=== PATIENT | male | born 1980 | race Caucasian/White ===

== ENCOUNTER → 2018-02-26 | Outpatient (CLI) | payer OTHER | LOC: FIMAGING 07:54 | PROVIDERS: ATTEND Radiology Diagnostic Radiology | DX: I87.2 Venous insufficiency (chronic) (peripheral) (principal); R22.42 Localized swelling, mass and lump, left lower limb; L98.499 Non-pressure chronic ulcer of skin of other sites with unspecified severity; Z86.718 Personal history of other venous thrombosis and embolism ==

== ENCOUNTER 2018-03-31 11:37 | Day surgery (SDC) | payer OTHER ==
[2018-03-31] MEDS ORDERED: ONDANSETRON 4 MG/2 ML VIAL IVP ONE (11:52)
[2018-03-31] MEDS ORDERED: NS 1,000 ML IV ONE (11:52)
[2018-03-31] MEDS ORDERED: FLUMAZENIL 0.5 MG/5 ML MDV IVP PRN (11:52)
[2018-03-31] MEDS ORDERED: fentaNYL 100 MCG/2 ML INJ IVP PRN (11:52)
[2018-03-31] MEDS ORDERED: MIDAZOLAM 2 MG/2 ML VIAL IVP PRN (11:52)
[2018-03-31] MEDS ORDERED: NALOXONE HCL 0.4 MG/ML INJ IVP PRN (11:52)
[2018-03-31] MEDS ORDERED: NALOXONE HCL 0.4 MG/ML INJ ONE (12:54)
[2018-03-31] MEDS ORDERED: fentaNYL 100 MCG/2 ML INJ ONE (12:54)
[2018-03-31] MEDS ORDERED: MIDAZOLAM 2 MG/2 ML VIAL ONE (12:54)
[2018-03-31] MEDS ORDERED: FLUMAZENIL 0.5 MG/5 ML MDV IVP ONE (12:55)
--- NOTE | 2018-03-31 13:42 | PDPROPOC ---
Sedation Plan of Care Sedation Plan of Care: vital signs stable, mental status noted, patient educated of risks, benefits, alternatives, patient can tolerate sedation ASA Classification: ASA 2 Planned drugs: fentanyl, midazolam Mallampati Score: Class 2 Mallampati Reference Image: Patient passed 3-3-2 rule?: Yes
--- NOTE | 2018-03-31 13:42 | PDGENHP ---
History & Physical Chief Complaint: LLE ULCERS History of Present Illness: INCOMPETENT LSV SYSTEM CAUSING ULCERS. Pertinent Past, Social, Family History: SEEING WOUND CARE FOR DRESSING CHANGES. NON SMOKER Relevant Physical Exam: ULCER DRESSED Cardiorespiratory Assessment: RRR, CTA
[2018-03-31] MEDS ORDERED: SODIUM TETRADECYL SULFATE 3% 2 ML VIAL IV ONE (14:25)
[2018-03-31] MEDS ORDERED: LIDO/EPI 1% **for epidural** 30 ML SDV ONE (14:25)
[2018-03-31 15:18] VITALS: BP 111/81
[2018-03-31] MEDS ORDERED: ONDANSETRON 4 MG/2 ML VIAL IVP PRN (16:31)
[2018-03-31] MEDS ORDERED: ACETAMINOPHEN 325 MG TAB PO PRN (16:31)
--- NOTE | 2018-03-31 16:32 | PDRADPN ---
Radiology Procedure Note Date of Procedure: 03/31/18 Radiologist: Christine Benito Anesthesia: IV Sedation Pre-op Diagnosis: LT LEG ULCERS Post-op Diagnosis: SAME Indication: VENOUS INSUFFICIENCY Procedure: LSV ABLATION AND SCLEROTHERAPY Inf/Abcess present in the surg proc area at time of surgery?: No
== END 2018-03-31 16:41 | disposition home or self-care (01) ==
LOC: FIMAGING 11:37
PROVIDERS: ATTEND Radiology Diagnostic Radiology
DX: I83.229 Varicose veins of left lower extremity with both ulcer of unspecified site and inflammation (principal); R22.42 Localized swelling, mass and lump, left lower limb; L97.929 Non-pressure chronic ulcer of unspecified part of left lower leg with unspecified severity; Z86.718 Personal history of other venous thrombosis and embolism
CPT/HCPCS: J2250; J2310; J3010